=== PATIENT | male | born 1970 | race Two or more races ===

== ENCOUNTER 2021-05-04 16:57 | Emergency (ER) | payer BC ==
[~2021-05-04] VITALS: Ht 180.3 cm; Wt 81.6 kg
[2021-05-04] MEDS ORDERED: OMEPRAZOLE40 MG PO (17:22)
== END 2021-05-04 22:03 | disposition home or self-care (01) ==
LOC: ER 16:57
DX: R10.84 Generalized abdominal pain (principal)
CPT/HCPCS: 74177; Q9965